=== PATIENT | female | born 1950 | race Caucasian/White ===

== ENCOUNTER 2017-08-26 17:27 | Inpatient (IN) | payer MEDICARE, OTHER ==
[~2017-08-26] VITALS: Ht 157.5 cm; Wt 89.5 kg
[~2017-08-26 17:27] MED LIST: ACET-2247 PO; AMIO200T2 PO; APIX5TAB PO; AUD NEB; BISA10S PR; CELE100 PO; DILT300T PO; DSS100 PO; FAMO20 PO; FE PR; FLUT16H NASAL; FLUT1BLS PO; LORA0.5T2 PO; MOM30 PO; OXYC-42 PO; PANT40TA25 PO; ROPI0.255 PO; SERT100T12 PO; TIOT185 IH; ZOLP5 PO
[2017-08-26] MEDS ORDERED: MULT-1272 PO (17:53)
[2017-08-26] MEDS ORDERED: ASCO500 PO (17:53)
[2017-08-26] MEDS ORDERED: LEVO25TA9 PO (17:53)
[2017-08-26 20:24] LABS: BASOPHILS % (AUTO) 0.7 % (0.0-2.0); EOSINOPHILS % (AUTO) 4.3 % (1.0-6.0); HEMATOCRIT 33.3 % (36-46); HEMOGLOBIN 10.9 g/dL (12.0-16.0); LYMPHOCYTES # (AUTO) 2.4 K/uL (1.0-4.8); LYMPHOCYTES % (AUTO) 28.4 % (22.0-44.0); MEAN CORPUSCULAR HEMOGLOBIN 29.5 pg (26.0-34.0); MEAN CORPUSCULAR HGB CONC 32.8 G/dL (31.0-37.0); MEAN CORPUSCULAR VOLUME 90 fL (80-100); MONOCYTES # (AUTO) 0.8 K/uL (0.1-1.0); MONOCYTES % (AUTO) 9.3 % (2.0-9.0); NEUTROPHILS # (AUTO) 4.9 K/uL (1.8-7.7); NEUTROPHILS % (AUTO) 57.3 % (40.0-70.0); PLATELET COUNT (AUTO) 272 K/uL (150-450); RED CELL DISTRIBUTION WIDTH 16.5 % (11.5-14.5)
[2017-08-26 20:30] LABS: ANION GAP 5 mmol/L (8-16); CALCIUM, TOTAL 8.8 mg/dL (8.8-10.5); CARBON DIOXIDE 32 mmol/L (22-29); CHLORIDE 101 mmol/L (98-107); CREATININE 0.68 mg/dL (0.60-1.30); GLOMERULAR FILTR. RATE CALC > 60 mL/min (>60); GLUCOSE,RANDOM 98 mg/dL (70-110); POTASSIUM 4.5 mmol/L (3.5-5.1); SODIUM SERUM 138 mmol/L (136-145); UREA NITROGEN, BLOOD 17 mg/dL (7-18)
[2017-08-26 20:36] LABS: ALANINE AMINOTRANSFERASE 16 U/L (12-78); ALBUMIN 2.9 g/dL (3.4-5.0); ALKALINE PHOSPHATASE 111 U/L (46-116); ASPARTATE AMINOTRANSFERASE 15 U/L (15-37); BILIRUBIN,TOTAL 0.2 mg/dL (0.1-1.0); CREATINE KINASE, TOTAL 21 U/L (26-192); TOTAL PROTEIN, SERUM 7.5 g/dL (6.4-8.2)
[2017-08-26] MEDS ORDERED: ALBUTEROL SULFATE 2.5 MG/0.5 ML NEB SOLUTION NEB ONE (20:45)
[2017-08-26] MEDS ORDERED: IPRATROPIUM BROMIDE 0.5 MG/2.5 ML NEB SOLUTION NEB ONE (20:45)
[2017-08-26] MEDS ORDERED: MethylPREDNISolone SOD SUCC 125 MG/2 ML VIAL IVP ONE (20:45)
[2017-08-26 21:35] LABS: B-TYPE NATRIURETIC PEPTIDE 57 pg/mL (0-100)
[2017-08-26] MEDS ORDERED: FUROSEMIDE 40 MG/4 ML VIAL IVP ONE (21:45)
[2017-08-26] MEDS ORDERED: LEVOFLOXACIN 500 MG/D5% WATER 100 ML IV ONE (22:00)
[2017-08-26] MEDS ORDERED: ACETAMINOPHEN 325 MG TABLET PO PRN (22:00)
[2017-08-26] MEDS ORDERED: 0.9% SODIUM CHLORIDE 10 ML SYRINGE IVP PRN (22:00)
[2017-08-26] MEDS ORDERED: ONDANSETRON HCL 4 MG/2 ML VIAL IVP PRN (22:00)
[2017-08-26 22:43] LABS: APPEARANCE,URINE CLEAR (CLEAR); BILIRUBIN,URINE NEGATIVE (NEGATIVE); GLUCOSE, URINE (UA) NEGATIVE (NEGATIVE); KETONES,URINE NEGATIVE (NEGATIVE); LEUKOCYTE ESTERASE ,URINE NEGATIVE (NEGATIVE); NITRATE,URINE NEGATIVE (NEGATIVE); OCCULT BLOOD,URINE NEGATIVE (NEGATIVE); PH,URINE 7.5 (5.0-8.0); PROTEIN,URINE NEGATIVE (NEGATIVE)
[2017-08-26 22:58] VITALS: BP 96/51
[2017-08-26 22:59] LABS: INFLUENZA TYPE A NEGATIVE FOR TYPE A (NEGATIVE); INFLUENZA TYPE B NEGATIVE FOR TYPE B (NEGATIVE)
[2017-08-26 23:48] VITALS: BP 94/49
[2017-08-27] MEDS: ALBUTEROL SULFATE 2.5 MG/0.5 ML NEB SOLUTION NEB SCH ×6 (02:00→23:00)
[2017-08-27] MEDS: IPRATROPIUM BROMIDE 0.5 MG/2.5 ML NEB SOLUTION NEB SCH ×6 (02:00→23:00)
[2017-08-27 03:52] VITALS: BP 127/63
[2017-08-27 05:49] LABS: BASOPHILS % (AUTO) 0.2 % (0.0-2.0); EOSINOPHILS % (AUTO) 0 % (1.0-6.0); HEMATOCRIT 34.6 % (36-46); HEMOGLOBIN 11.4 g/dL (12.0-16.0); LYMPHOCYTES % (AUTO) 12.4 % (22.0-44.0); MEAN CORPUSCULAR HEMOGLOBIN 29.4 pg (26.0-34.0); MEAN CORPUSCULAR HGB CONC 32.9 G/dL (31.0-37.0); MEAN CORPUSCULAR VOLUME 90 fL (80-100); MONOCYTES # (AUTO) 0.1 K/uL (0.1-1.0); MONOCYTES % (AUTO) 0.8 % (2.0-9.0); NEUTROPHILS # (AUTO) 7.1 K/uL (1.8-7.7); PLATELET COUNT (AUTO) 282 K/uL (150-450); RED BLOOD CELL COUNT(AUTO) 3.87 MIL/uL (4.00-5.20); RED CELL DISTRIBUTION WIDTH 16.5 % (11.5-14.5)
[2017-08-27 05:53] LABS: NEUTROPHILS % (AUTO) 86.6 % (40.0-70.0)
[2017-08-27 06:35] LABS: ALANINE AMINOTRANSFERASE 15 U/L (12-78); ALKALINE PHOSPHATASE 120 U/L (46-116); ANION GAP 7 mmol/L (8-16); ASPARTATE AMINOTRANSFERASE 15 U/L (15-37); BILIRUBIN,TOTAL 0.2 mg/dL (0.1-1.0); CARBON DIOXIDE 30 mmol/L (22-29); CHLORIDE 103 mmol/L (98-107); CREATININE 0.74 mg/dL (0.60-1.30); GLOMERULAR FILTR. RATE CALC > 60 mL/min (>60); GLUCOSE,RANDOM 145 mg/dL (70-110); POTASSIUM 4.3 mmol/L (3.5-5.1); SODIUM SERUM 140 mmol/L (136-145); TOTAL PROTEIN, SERUM 7.9 g/dL (6.4-8.2); UREA NITROGEN, BLOOD 15 mg/dL (7-18)
[2017-08-27 07:19] VITALS: BP 125/51
[2017-08-27] MEDS ORDERED: ACETAMINOPHEN 325 MG TABLET PO PRN (08:15)
[2017-08-27] MEDS ORDERED: ALBUTEROL SULFATE 2.5 MG/0.5 ML NEB SOLUTION NEB PRN (08:15)
[2017-08-27] MEDS ORDERED: ZOLPIDEM TARTRATE 5 MG TABLET PO PRN ×2 (08:15)
[2017-08-27] MEDS ORDERED: IPRATROPIUM BROMIDE 0.5 MG/2.5 ML NEB SOLUTION NEB PRN (08:15)
[2017-08-27] MEDS ORDERED: 0.9% SODIUM CHLORIDE 10 ML SYRINGE IVP PRN (08:15)
[2017-08-27 08:44] LABS: HEMOGLOBIN A1C 5.5 % (4.5-6.2)
[2017-08-27] MEDS ORDERED: TIOTROPIUM BROMIDE 18 MCG/INH HANDIHALER [5] IH SCH (09:00)
[2017-08-27 09:02] LABS: THYROID STIMULATING HORMONE 1.74 uIU/mL (0.36-3.74)
[2017-08-27] MEDS: AMIODARONE HCL 200 MG TABLET PO SCH (09:14)
[2017-08-27] MEDS: PANTOPRAZOLE SODIUM 40 MG DR TABLET PO SCH (09:14)
[2017-08-27] MEDS: CefTRIAXone SODIUM 1 GM in DEXTROSE 5%-WATER 10 ML IV SCH (09:14)
[2017-08-27] MEDS: MethylPREDNISolone SOD SUCC 125 MG/2 ML VIAL IVP SCH ×2 (09:14→15:15)
[2017-08-27] MEDS: DOCUSATE SODIUM 100 MG CAPSULE PO SCH ×3 (09:14→20:19)
[2017-08-27] MEDS ORDERED: SODIUM CHLORIDE 0.9% 100 ML ONE (09:39)
[2017-08-27] MEDS: AZITHROMYCIN 500 MG/NS 250 ML IV SCH (09:46)
[2017-08-27] MEDS: FLUTICASONE/VILANTEROL 200-25 MCG/INH INHALER [14] IH SCH (09:46)
[2017-08-27] MEDS: LEVOTHYROXINE SODIUM 25 MCG TABLET PO SCH (09:47)
[2017-08-27] MEDS: CELECOXIB 100 MG CAPSULE PO SCH (09:47)
[2017-08-27] MEDS: APIXABAN 5 MG TABLET PO SCH ×2 (09:48→20:16)
[2017-08-27] MEDS: SERTRALINE HCL 100 MG TABLET PO SCH (09:48)
[2017-08-27] MEDS: ASCORBIC ACID 500 MG TABLET PO SCH (09:48)
[2017-08-27 11:04] VITALS: BP 95/55
[2017-08-27 14:33] VITALS: BP 109/59
[2017-08-27] MEDS: HYDROCODONE/ACETAMINOPHEN 5-325 MG TABLET PO PRN ×2 (14:35→20:17)
[2017-08-27 15:25] VITALS: BP 118/58
[2017-08-27 19:21] VITALS: BP 106/59
[2017-08-27] MEDS: OXYGEN THERAPY IH SCH (20:15)
[2017-08-27] MEDS: ROPINIRole HCL 0.25 MG TABLET PO SCH (20:16)
[2017-08-27] MEDS: LORazepam 0.5 MG TABLET PO PRN (20:17)
[2017-08-28] VITALS (7 sets, daily range): BP systolic 99–122; BP diastolic 52–61
[2017-08-28] MEDS: MethylPREDNISolone SOD SUCC 125 MG/2 ML VIAL IVP SCH ×4 (00:34→23:38)
[2017-08-28] MEDS: ALBUTEROL SULFATE 2.5 MG/0.5 ML NEB SOLUTION NEB SCH ×6 (03:00→23:00)
[2017-08-28] MEDS: IPRATROPIUM BROMIDE 0.5 MG/2.5 ML NEB SOLUTION NEB SCH ×6 (03:00→23:00)
[2017-08-28 05:48] LABS: BASOPHILS % (AUTO) 0.1 % (0.0-2.0); EOSINOPHILS % (AUTO) 0 % (1.0-6.0); HEMATOCRIT 33.9 % (36-46); LYMPHOCYTES # (AUTO) 1.1 K/uL (1.0-4.8); LYMPHOCYTES % (AUTO) 5.5 % (22.0-44.0); MEAN CORPUSCULAR HEMOGLOBIN 29.2 pg (26.0-34.0); MEAN CORPUSCULAR HGB CONC 32.6 G/dL (31.0-37.0); MEAN CORPUSCULAR VOLUME 90 fL (80-100); MONOCYTES # (AUTO) 0.2 K/uL (0.1-1.0); MONOCYTES % (AUTO) 1.1 % (2.0-9.0); NEUTROPHILS # (AUTO) 18.6 K/uL (1.8-7.7); PLATELET COUNT (AUTO) 325 K/uL (150-450); RED BLOOD CELL COUNT(AUTO) 3.78 MIL/uL (4.00-5.20)
[2017-08-28 05:59] LABS: NEUTROPHILS % (AUTO) 93.3 % (40.0-70.0)
[2017-08-28 06:04] LABS: ANION GAP 6 mmol/L (8-16); CARBON DIOXIDE 29 mmol/L (22-29); CHLORIDE 105 mmol/L (98-107); CREATININE 0.74 mg/dL (0.60-1.30); GLOMERULAR FILTR. RATE CALC > 60 mL/min (>60); GLUCOSE,RANDOM 161 mg/dL (70-110); POTASSIUM 4.3 mmol/L (3.5-5.1); SODIUM SERUM 140 mmol/L (136-145); UREA NITROGEN, BLOOD 19 mg/dL (7-18)
[2017-08-28] MEDS: LEVOTHYROXINE SODIUM 25 MCG TABLET PO SCH (06:35)
[2017-08-28] MEDS: OXYGEN THERAPY IH SCH ×2 (07:58→19:14)
[2017-08-28] MEDS: AZITHROMYCIN 500 MG/NS 250 ML IV SCH (07:58)
[2017-08-28] MEDS: PANTOPRAZOLE SODIUM 40 MG DR TABLET PO SCH (07:59)
[2017-08-28] MEDS: DOCUSATE SODIUM 100 MG CAPSULE PO SCH ×2 (07:59→21:00)
[2017-08-28] MEDS: AMIODARONE HCL 200 MG TABLET PO SCH (07:59)
[2017-08-28] MEDS: APIXABAN 5 MG TABLET PO SCH ×2 (08:00→21:01)
[2017-08-28] MEDS: ASCORBIC ACID 500 MG TABLET PO SCH (08:00)
[2017-08-28] MEDS: SERTRALINE HCL 100 MG TABLET PO SCH (08:00)
[2017-08-28] MEDS: CELECOXIB 100 MG CAPSULE PO SCH (08:01)
[2017-08-28] MEDS: TIOTROPIUM BROMIDE 18 MCG/INH HANDIHALER [5] IH SCH (08:05)
[2017-08-28] MEDS: FLUTICASONE/VILANTEROL 200-25 MCG/INH INHALER [14] IH SCH (08:06)
[2017-08-28] MEDS: CefTRIAXone SODIUM 1 GM in DEXTROSE 5%-WATER 10 ML IV SCH (10:58)
[2017-08-28] MEDS: HYDROCODONE/ACETAMINOPHEN 5-325 MG TABLET PO PRN (14:31)
[2017-08-28] MEDS: ROPINIRole HCL 0.25 MG TABLET PO SCH (21:00)
[2017-08-29] MEDS: IPRATROPIUM BROMIDE 0.5 MG/2.5 ML NEB SOLUTION NEB SCH ×4 (03:00→14:58)
[2017-08-29] MEDS: ALBUTEROL SULFATE 2.5 MG/0.5 ML NEB SOLUTION NEB SCH ×4 (03:00→14:58)
[2017-08-29 05:13] VITALS: BP 132/71
[2017-08-29] MEDS: LEVOTHYROXINE SODIUM 25 MCG TABLET PO SCH (05:46)
[2017-08-29 07:31] VITALS: BP 116/68
[2017-08-29] MEDS: DOCUSATE SODIUM 100 MG CAPSULE PO SCH (09:00)
[2017-08-29] MEDS: AZITHROMYCIN 500 MG/NS 250 ML IV SCH (10:09)
[2017-08-29] MEDS: MethylPREDNISolone SOD SUCC 125 MG/2 ML VIAL IVP SCH ×2 (10:09→16:00)
[2017-08-29] MEDS: CefTRIAXone SODIUM 1 GM in DEXTROSE 5%-WATER 10 ML IV SCH (10:09)
[2017-08-29] MEDS: FLUTICASONE/VILANTEROL 200-25 MCG/INH INHALER [14] IH SCH (10:10)
[2017-08-29] MEDS: TIOTROPIUM BROMIDE 18 MCG/INH HANDIHALER [5] IH SCH (10:10)
[2017-08-29] MEDS: CELECOXIB 100 MG CAPSULE PO SCH (10:11)
[2017-08-29] MEDS: SERTRALINE HCL 100 MG TABLET PO SCH (10:12)
[2017-08-29] MEDS: AMIODARONE HCL 200 MG TABLET PO SCH (10:12)
[2017-08-29] MEDS: ASCORBIC ACID 500 MG TABLET PO SCH (10:12)
[2017-08-29] MEDS: PANTOPRAZOLE SODIUM 40 MG DR TABLET PO SCH (10:12)
[2017-08-29] MEDS: APIXABAN 5 MG TABLET PO SCH (10:12)
[2017-08-29] MEDS: OXYGEN THERAPY IH SCH (10:15)
[2017-08-29 11:24] VITALS: BP 105/56
[2017-08-29] MEDS ORDERED: AZITHROMYCIN 250 MG TABLET PO ONE (11:30)
[2017-08-29] MEDS ORDERED: AZIT250T9 PO (11:43)
[2017-08-29] MEDS: LORazepam 0.5 MG TABLET PO PRN (15:18)
[2017-08-29 15:57] VITALS: BP 116/77
== END 2017-08-29 18:00 | DRG 291 ==
LOC: EMS 17:33 → 5S 22:00
PROVIDERS: ADMIT Internal Medicine; ATTEND Internal Medicine
DX: I11.0 Hypertensive heart disease with heart failure (principal); J96.00 Acute respiratory failure, unspecified whether with hypoxia or hypercapnia; L89.102 Pressure ulcer of unspecified part of back, stage 2; J44.1 Chronic obstructive pulmonary disease with (acute) exacerbation; I50.43 Acute on chronic combined systolic (congestive) and diastolic (congestive) heart failure; I48.91 Unspecified atrial fibrillation; I10 Essential (primary) hypertension; F32.9 Major depressive disorder, single episode, unspecified; K21.9 Gastro-esophageal reflux disease without esophagitis; E03.9 Hypothyroidism, unspecified; E11.9 Type 2 diabetes mellitus without complications; Z82.49 Family history of ischemic heart disease and other diseases of the circulatory system; Z82.5 Family history of asthma and other chronic lower respiratory diseases; Z83.3 Family history of diabetes mellitus; Z87.891 Personal history of nicotine dependence; G89.29 Other chronic pain; Z79.899 Other long term (current) drug therapy; E66.01 Morbid (severe) obesity due to excess calories; Z68.36 Body mass index [BMI] 36.0-36.9, adult; Z88.1 Allergy status to other antibiotic agents
CPT/HCPCS: 83036; 83735; 84443; 87081; 87804; 93005; 94640; 96365; 96375; 97161; 97166; 99285; J0456; J0696; J1940; J1956; J2930; J7050; J7060

== ENCOUNTER 2019-07-29 14:35 | Inpatient (IN) | payer MEDICARE, OTHER ==
[~2019-07-29] VITALS: Ht 162.6 cm; Wt 60.1 kg
[~2019-07-29 14:35] MED LIST changes: -AMIO200T2 PO; +AMIO200T5 PO; +ASCO500 PO; +AZIT250T9 PO; -BISA10S PR; +BISA10SU11 PR; -FAMO20 PO; -FLUT16H NASAL; +LEVO25TA9 PO; +LORA-999 PO; -LORA0.5T2 PO; +MULT-1272 PO; -ROPI0.255 PO; +ROPI0.257 PO
[2019-07-29] MEDS ORDERED: ACETAMINOPHEN 500 MG TABLET PO ONE (15:15)
[2019-07-29] MEDS ORDERED: MULT-248 PO (15:20)
[2019-07-29] MEDS ORDERED: DOCU-275 PO (15:20)
[2019-07-29 15:55] LABS: ANION GAP 4 mmol/L (8-16); CALCIUM, TOTAL 8.9 mg/dL (8.8-10.5); CARBON DIOXIDE 37 mmol/L (22-29); CHLORIDE 106 mmol/L (98-107); CREATININE 0.61 mg/dL (0.60-1.30); GLOMERULAR FILTR. RATE CALC > 60 mL/min (>60); GLUCOSE,RANDOM 102 mg/dL (70-110); POTASSIUM 4.2 mmol/L (3.5-5.1); SODIUM SERUM 147 mmol/L (136-145); UREA NITROGEN, BLOOD 19 mg/dL (7-18)
[2019-07-29 15:58] LABS: INR 1.1 (0.9-1.1); PROTHROMBIN TIME 10.7 SEC (9.4-11.6)
[2019-07-29 15:59] LABS: BASOPHILS % (AUTO) 0.3 % (0.0-2.0); EOSINOPHILS % (AUTO) 2.6 % (1.0-6.0); HEMATOCRIT 36.1 % (36-46); HEMOGLOBIN 11.6 g/dL (12.0-16.0); LYMPHOCYTES # (AUTO) 1.9 K/uL (1.0-4.8); LYMPHOCYTES % (AUTO) 30.5 % (22.0-44.0); MEAN CORPUSCULAR HEMOGLOBIN 30.7 pg (26.0-34.0); MEAN CORPUSCULAR HGB CONC 32.2 G/dL (31.0-37.0); MEAN CORPUSCULAR VOLUME 96 fL (80-100); MONOCYTES # (AUTO) 0.7 K/uL (0.1-1.0); NEUTROPHILS # (AUTO) 3.4 K/uL (1.8-7.7); NEUTROPHILS % (AUTO) 55.6 % (40.0-70.0); PLATELET COUNT (AUTO) 237 K/uL (150-450); RED BLOOD CELL COUNT(AUTO) 3.78 MIL/uL (4.00-5.20); RED CELL DISTRIBUTION WIDTH 14.2 % (11.5-14.5)
[2019-07-29 16:08] LABS: ALANINE AMINOTRANSFERASE 35 U/L (12-78); ALBUMIN 2.8 g/dL (3.4-5.0); ALKALINE PHOSPHATASE 86 U/L (46-116); ASPARTATE AMINOTRANSFERASE 31 U/L (15-37); BILIRUBIN,TOTAL 0.4 mg/dL (0.1-1.0); LIPASE 72 U/L (73-393); TOTAL PROTEIN, SERUM 7.3 g/dL (6.4-8.2)
[2019-07-29] MEDS ORDERED: SODIUM CHLORIDE 0.9% 1,000 ML IV ONE (18:15)
[2019-07-29] MEDS ORDERED: PIPERACILLIN/TAZO 3.375 GM/D5W 50 ML IV ONE (18:45)
[2019-07-29] MEDS ORDERED: AZITHROMYCIN 500 MG/NS 250 ML IV ONE (18:45)
[2019-07-29] MEDS ORDERED: VANCOMYCIN HCL 1 GM/D5% WATER 200 ML IV ONE (18:45)
[2019-07-29] MEDS ORDERED: ACETAMINOPHEN 325 MG TABLET PO PRN ×2 (19:30)
[2019-07-29] MEDS ORDERED: BISACODYL 10 MG RECTAL RECTAL SUPPOSITORY PR PRN (19:30)
[2019-07-29] MEDS ORDERED: MAGNESIUM HYDROXIDE SUSPENSION 30 ML UDCUP PO PRN (19:30)
[2019-07-29] MEDS ORDERED: SODIUM CHLORIDE 0.45% 1,000 ML IV ONE (19:30)
[2019-07-29] MEDS ORDERED: 0.9% SODIUM CHLORIDE 10 ML SYRINGE IVP PRN (19:30)
[2019-07-29] MEDS ORDERED: IPRATROPIUM BROMIDE 0.5 MG/2.5 ML NEB SOLUTION NEB ONE (20:15)
[2019-07-29] MEDS ORDERED: ALBUTEROL SULFATE 2.5 MG/0.5 ML NEB SOLUTION NEB ONE (20:15)
[2019-07-29] MEDS ORDERED: SODIUM CHLORIDE 0.9% 500 ML IV ONE (20:15)
[2019-07-29] MEDS: DOCUSATE SODIUM 100 MG CAPSULE PO SCH (21:20)
[2019-07-29 22:00] VITALS: BP 114/45
[2019-07-30] MEDS ORDERED: VANCOMYCIN HCL 500 MG in DEXTROSE 5%-WATER 100 ML IV ONE ×2
[2019-07-30] MEDS: HEPARIN SODIUM,PORCINE 5,000 UNITS/ML VIAL SQ SCH ×4 (00:36→23:26)
[2019-07-30] MEDS: PIPERACILLIN/TAZO 3.375 GM/D5W 50 ML IV SCH ×5 (01:57→23:26)
[2019-07-30 04:00] VITALS: BP 121/78
[2019-07-30] MEDS: VANCOMYCIN HCL 1.5 GM in DEXTROSE 5%-WATER 250 ML IV SCH ×2 (06:38→18:23)
[2019-07-30 07:15] LABS: BASOPHILS % (AUTO) 0.3 % (0.0-2.0); EOSINOPHILS % (AUTO) 2.5 % (1.0-6.0); HEMOGLOBIN 10.8 g/dL (12.0-16.0); LYMPHOCYTES # (AUTO) 1.5 K/uL (1.0-4.8); LYMPHOCYTES % (AUTO) 24.5 % (22.0-44.0); MEAN CORPUSCULAR HEMOGLOBIN 31.4 pg (26.0-34.0); MEAN CORPUSCULAR HGB CONC 32.7 G/dL (31.0-37.0); MEAN CORPUSCULAR VOLUME 96 fL (80-100); MONOCYTES # (AUTO) 0.5 K/uL (0.1-1.0); MONOCYTES % (AUTO) 8.4 % (2.0-9.0); NEUTROPHILS % (AUTO) 64.3 % (40.0-70.0); PLATELET COUNT (AUTO) 205 K/uL (150-450); RED BLOOD CELL COUNT(AUTO) 3.44 MIL/uL (4.00-5.20); RED CELL DISTRIBUTION WIDTH 13.9 % (11.5-14.5)
[2019-07-30 08:00] LABS: ALANINE AMINOTRANSFERASE 28 U/L (12-78); ALBUMIN 2.4 g/dL (3.4-5.0); ALKALINE PHOSPHATASE 74 U/L (46-116); ANION GAP 3 mmol/L (8-16); ASPARTATE AMINOTRANSFERASE 24 U/L (15-37); BILIRUBIN,TOTAL 0.3 mg/dL (0.1-1.0); CALCIUM, TOTAL 8.3 mg/dL (8.8-10.5); CARBON DIOXIDE 35 mmol/L (22-29); CHLORIDE 104 mmol/L (98-107); CREATININE 0.65 mg/dL (0.60-1.30); GLOMERULAR FILTR. RATE CALC > 60 mL/min (>60); GLUCOSE,RANDOM 104 mg/dL (70-110); POTASSIUM 3.6 mmol/L (3.5-5.1); SODIUM SERUM 142 mmol/L (136-145); TOTAL PROTEIN, SERUM 6.4 g/dL (6.4-8.2); UREA NITROGEN, BLOOD 14 mg/dL (7-18)
[2019-07-30 08:02] VITALS: BP 111/58
[2019-07-30] MEDS: DOCUSATE SODIUM 100 MG CAPSULE PO SCH ×2 (08:16→20:38)
[2019-07-30] MEDS: FAMOTIDINE 20 MG TABLET PO SCH (08:16)
[2019-07-30] MEDS: CHOLECALCIFEROL (VIT D3) 1,000 UNITS TABLET PO SCH ×2 (10:29→20:39)
[2019-07-30 11:48] VITALS: BP 97/65
[2019-07-30 16:14] VITALS: BP 109/59
[2019-07-30 16:55] LABS: APPEARANCE,URINE CLOUDY (CLEAR); BILIRUBIN,URINE NEGATIVE (NEGATIVE); GLUCOSE, URINE (UA) NEGATIVE (NEGATIVE); KETONES,URINE NEGATIVE (NEGATIVE); LEUKOCYTE ESTERASE ,URINE LARGE (NEGATIVE); NITRATE,URINE NEGATIVE (NEGATIVE); OCCULT BLOOD,URINE SMALL (NEGATIVE); PROTEIN,URINE NEGATIVE (NEGATIVE)
[2019-07-30 17:19] LABS: BACTERIA,URINE Many /HPF (None Seen); SQUAMOUS EPITHELIAL CELL,UR Few /LPF (None Seen); WBC,URINE 51-100 /HPF (0-5)
[2019-07-30 20:57] VITALS: BP 102/68
[2019-07-31 00:37] VITALS: BP 112/56
[2019-07-31 04:32] VITALS: BP 129/54
[2019-07-31] MEDS ORDERED: ALBUTEROL SULFATE 2.5 MG/0.5 ML NEB SOLUTION NEB ONE (04:38)
[2019-07-31] MEDS ORDERED: IPRATROPIUM BROMIDE 0.5 MG/2.5 ML NEB SOLUTION NEB ONE (04:38)
[2019-07-31] MEDS ORDERED: ALBUTEROL SULFATE 2.5 MG/0.5 ML NEB SOLUTION NEB PRN (04:45)
[2019-07-31] MEDS ORDERED: IPRATROPIUM BROMIDE 0.5 MG/2.5 ML NEB SOLUTION NEB PRN (04:45)
[2019-07-31] MEDS: PIPERACILLIN/TAZO 3.375 GM/D5W 50 ML IV SCH ×4 (05:18→23:15)
[2019-07-31] MEDS: VANCOMYCIN HCL 1.5 GM in DEXTROSE 5%-WATER 250 ML IV SCH ×2 (05:55→18:05)
[2019-07-31 07:26] VITALS: BP 112/71
[2019-07-31] MEDS: MULTIVITAMINS WITH MINERALS, THERAPEUTIC TABLET PO SCH (08:07)
[2019-07-31] MEDS: FAMOTIDINE 20 MG TABLET PO SCH (08:07)
[2019-07-31] MEDS: CHOLECALCIFEROL (VIT D3) 1,000 UNITS TABLET PO SCH ×2 (08:07→23:15)
[2019-07-31] MEDS: DOCUSATE SODIUM 100 MG CAPSULE PO SCH ×2 (08:07→23:16)
[2019-07-31] MEDS: HEPARIN SODIUM,PORCINE 5,000 UNITS/ML VIAL SQ SCH ×3 (08:07→23:15)
[2019-07-31] MEDS ORDERED: OxyCODONE HCL/ACETAMINOPHEN 5-325 MG TABLET PO PRN (11:15)
[2019-07-31] MEDS ORDERED: LORazepam 2 MG/ML VIAL IVP PRN (11:15)
[2019-07-31 11:23] VITALS: BP 121/57
[2019-07-31 11:37] LABS: ANION GAP 2 mmol/L (8-16); CALCIUM, TOTAL 8.7 mg/dL (8.8-10.5); CARBON DIOXIDE 36 mmol/L (22-29); CHLORIDE 105 mmol/L (98-107); CREATININE 0.65 mg/dL (0.60-1.30); GLOMERULAR FILTR. RATE CALC > 60 mL/min (>60); GLUCOSE,RANDOM 101 mg/dL (70-110); POTASSIUM 3.5 mmol/L (3.5-5.1); SODIUM SERUM 143 mmol/L (136-145); UREA NITROGEN, BLOOD 8 mg/dL (7-18)
[2019-07-31] MEDS: SERTRALINE HCL 100 MG TABLET PO SCH (15:02)
[2019-07-31 15:20] VITALS: BP 122/64
[2019-07-31 20:30] VITALS: BP 109/69
[2019-08-01 00:10] VITALS: BP 100/58
[2019-08-01 04:40] VITALS: BP 103/55
[2019-08-01] MEDS: PIPERACILLIN/TAZO 3.375 GM/D5W 50 ML IV SCH (05:52)
[2019-08-01 07:10] VITALS: BP 113/68
[2019-08-01] MEDS: VANCOMYCIN HCL 1.5 GM in DEXTROSE 5%-WATER 250 ML IV SCH (07:34)
[2019-08-01] MEDS: SERTRALINE HCL 100 MG TABLET PO SCH (07:51)
[2019-08-01] MEDS: MULTIVITAMINS WITH MINERALS, THERAPEUTIC TABLET PO SCH (07:51)
[2019-08-01] MEDS: HEPARIN SODIUM,PORCINE 5,000 UNITS/ML VIAL SQ SCH ×2 (07:51→16:54)
[2019-08-01] MEDS: FAMOTIDINE 20 MG TABLET PO SCH (07:51)
[2019-08-01] MEDS: DOCUSATE SODIUM 100 MG CAPSULE PO SCH (07:51)
[2019-08-01] MEDS: CHOLECALCIFEROL (VIT D3) 1,000 UNITS TABLET PO SCH (07:51)
[2019-08-01 09:18] LABS: ANION GAP 2 mmol/L (8-16); CALCIUM, TOTAL 8.6 mg/dL (8.8-10.5); CARBON DIOXIDE 34 mmol/L (22-29); CHLORIDE 105 mmol/L (98-107); CREATININE 0.73 mg/dL (0.60-1.30); GLOMERULAR FILTR. RATE CALC > 60 mL/min (>60); GLUCOSE,RANDOM 110 mg/dL (70-110); POTASSIUM 3.6 mmol/L (3.5-5.1); SODIUM SERUM 141 mmol/L (136-145); UREA NITROGEN, BLOOD 7 mg/dL (7-18)
[2019-08-01 09:45] LABS: VANCOMYCIN,RANDOM 54.1 mcg/mL (25.0-50.0)
[2019-08-01] MEDS ORDERED: NITROFURANTOIN MACROCRYSTAL 50 MG CAPSULE PO SCH (12:00)
[2019-08-01 12:48] VITALS: BP 128/50
[2019-08-01 15:52] VITALS: BP 108/57
== END 2019-08-01 19:00 | DRG 194 ==
LOC: EMS 14:59 → 4E 19:00
PROVIDERS: ADMIT Internal Medicine; ATTEND Internal Medicine
DX: J18.9 Pneumonia, unspecified organism (principal); M84.48XA Pathological fracture, other site, initial encounter for fracture; N39.0 Urinary tract infection, site not specified; Z16.24 Resistance to multiple antibiotics; E44.0 Moderate protein-calorie malnutrition; J44.0 Chronic obstructive pulmonary disease with (acute) lower respiratory infection; J98.11 Atelectasis; E55.9 Vitamin D deficiency, unspecified; F41.1 Generalized anxiety disorder; F32.9 Major depressive disorder, single episode, unspecified; G89.4 Chronic pain syndrome; I50.9 Heart failure, unspecified; Y95 Nosocomial condition; K57.90 Diverticulosis of intestine, part unspecified, without perforation or abscess without bleeding; Z88.1 Allergy status to other antibiotic agents; Z87.891 Personal history of nicotine dependence; E11.9 Type 2 diabetes mellitus without complications; Z83.3 Family history of diabetes mellitus; Z82.49 Family history of ischemic heart disease and other diseases of the circulatory system; Z82.5 Family history of asthma and other chronic lower respiratory diseases; Z68.22 Body mass index [BMI] 22.0-22.9, adult
CPT/HCPCS: 74177; 83036; 87081; 87086; 94060; 94640; G0378; J0456; J1644; J2060; J2543; J3370; J7030; J7060

== ENCOUNTER 2022-04-07 14:04 | Inpatient (IN) | payer MEDICARE, OTHER ==
[~2022-04-07] VITALS: Ht 157.5 cm; Wt 81.3 kg
[~2022-04-07 14:04] MED LIST changes: +AMIO200 PO; -AMIO200T5 PO; -AZIT250T9 PO; +DOCU-385 PO; -DSS100 PO; -FE PR; +FLUT1BLS IH; -FLUT1BLS PO; +MAGN-169 PO; -MOM30 PO; -MULT-1272 PO; +MULT-248 PO; +NA P266E PR; +PANT-31 PO; -PANT40TA25 PO; +SERT-162 PO; -SERT100T12 PO; +ZOLP-280 PO; -ZOLP5 PO
[2022-04-07 17:11] LABS: BASOPHILS % (AUTO) 0.3 % (0.0-2.0); EOSINOPHILS % (AUTO) 1.6 % (1.0-6.0); HEMATOCRIT 34.1 % (36-46); LYMPHOCYTES % (AUTO) 10.9 % (22.0-44.0); MEAN CORPUSCULAR HEMOGLOBIN 29.1 pg (26.0-34.0); MEAN CORPUSCULAR HGB CONC 32.3 G/dL (31.0-37.0); MEAN CORPUSCULAR VOLUME 90 fL (80-100); MONOCYTES # (AUTO) 0.8 K/uL (0.1-1.0); MONOCYTES % (AUTO) 9.3 % (2.0-9.0); NEUTROPHILS % (AUTO) 77.9 % (40.0-70.0); PLATELET COUNT (AUTO) 239 K/uL (150-450); RED BLOOD CELL COUNT(AUTO) 3.78 MIL/uL (4.00-5.20); RED CELL DISTRIBUTION WIDTH 15.2 % (11.5-14.5)
[2022-04-07 17:23] LABS: ANION GAP 9 mmol/L (8-16); CALCIUM, TOTAL 8.9 mg/dL (8.8-10.5); CARBON DIOXIDE 31 mmol/L (22-29); CHLORIDE 101 mmol/L (98-107); CREATININE 0.71 mg/dL (0.60-1.30); GLUCOSE,RANDOM 111 mg/dL (70-110); POTASSIUM 3.9 mmol/L (3.5-5.1); SODIUM SERUM 141 mmol/L (136-145); UREA NITROGEN, BLOOD 19 mg/dL (7-18)
[2022-04-07 17:26] LABS: GLOMERULAR FILTR. RATE CALC > 60 mL/min (>60)
[2022-04-07 17:29] LABS: ALANINE AMINOTRANSFERASE 15 U/L (12-78); ALBUMIN 2.6 g/dL (3.4-5.0); ALKALINE PHOSPHATASE 100 U/L (46-116); ASPARTATE AMINOTRANSFERASE 19 U/L (15-37); BILIRUBIN,TOTAL 0.5 mg/dL (0.1-1.0); LIPASE 49 U/L (73-393); TOTAL PROTEIN, SERUM 6.9 g/dL (6.4-8.2)
[2022-04-07 17:36] LABS: B-TYPE NATRIURETIC PEPTIDE 332 pg/mL (0-100)
[2022-04-07 18:00] LABS: LACTIC ACID 0.6 mmol/L (0.4-2.0)
[2022-04-07] MEDS ORDERED: RINGERS LACTATED IV ONE (21:15)
[2022-04-07] MEDS ORDERED: AZITHROMYCIN 500 MG/NS 250 ML IV ONE (21:15)
[2022-04-07] MEDS ORDERED: RINGERS SOLUTION,LACTATED 1,000 ML IV SCH ×2 (21:15→21:30)
[2022-04-07] MEDS ORDERED: ONDANSETRON HCL 4 MG/2 ML VIAL IVP PRN ×2 (21:15)
[2022-04-07] MEDS ORDERED: SODIUM PHOS/SODIUM BIPHOS 133 ML ENEMA PR ONE (21:15)
[2022-04-07] MEDS ORDERED: MAGNESIUM HYDROXIDE SUSPENSION 30 ML UDCUP PO PRN (21:30)
[2022-04-07] MEDS ORDERED: ZOLPIDEM TARTRATE 5 MG TABLET PO PRN (21:30)
[2022-04-07] MEDS ORDERED: BISACODYL 10 MG RECTAL RECTAL SUPPOSITORY PR PRN (21:30)
[2022-04-07] MEDS: CefTRIAXone 1 GM/DEXTROSE 50 ML IV SCH (22:24)
[2022-04-07 23:49] LABS: COVID AG,FIA SOURCE NASAL SWAB
[2022-04-08] VITALS: BP 100/76
[2022-04-08] MEDS ORDERED: HEPARIN SODIUM,PORCINE 5,000 UNITS/ML VIAL SQ SCH
[2022-04-08] MEDS ORDERED: SODIUM CHLORIDE 0.9% 250 ML IV ONE (00:38)
[2022-04-08] MEDS: ACETAMINOPHEN 325 MG TABLET PO PRN (01:33)
[2022-04-08] MEDS: LORazepam 0.5 MG TABLET PO PRN ×2 (01:47→15:11)
[2022-04-08] MEDS: IPRATROPIUM BROMIDE 0.5 MG/2.5 ML NEB SOLUTION NEB PRN ×2 (01:53→10:17)
[2022-04-08] MEDS: ALBUTEROL SULFATE 2.5 MG/0.5 ML NEB SOLUTION NEB PRN ×2 (01:54→10:17)
[2022-04-08] MEDS: LEVOTHYROXINE SODIUM 25 MCG TABLET PO SCH (05:29)
[2022-04-08 05:32] VITALS: BP 119/78
[2022-04-08 07:10] VITALS: BP 140/59
[2022-04-08] MEDS ORDERED: DOCUSATE SODIUM 100 MG CAPSULE PO SCH (09:00)
[2022-04-08] MEDS ORDERED: DILTIAZEM HCL CD 300 MG ER CAPSULE PO SCH (09:00)
[2022-04-08] MEDS: AZITHROMYCIN 250 MG TABLET PO SCH (09:04)
[2022-04-08] MEDS: DILTIAZEM HCL CD 120 MG ER CAPSULE PO SCH (09:04)
[2022-04-08] MEDS: PANTOPRAZOLE SODIUM 40 MG DR TABLET PO SCH (09:04)
[2022-04-08] MEDS: APIXABAN 5 MG TABLET PO SCH ×2 (09:04→20:23)
[2022-04-08] MEDS: DILTIAZEM HCL CD 180 MG ER CAPSULE PO SCH (09:05)
[2022-04-08] MEDS: TIOTROPIUM BROMIDE 18 MCG/INH HANDIHALER [5] IH SCH (09:05)
[2022-04-08] MEDS: SERTRALINE HCL 100 MG TABLET PO SCH (09:05)
[2022-04-08] MEDS: AMIODARONE HCL 200 MG TABLET PO SCH (09:05)
[2022-04-08 11:10] LABS: BASOPHILS % (AUTO) 0.2 % (0.0-2.0); EOSINOPHILS % (AUTO) 1.7 % (1.0-6.0); HEMATOCRIT 35.1 % (36-46); HEMOGLOBIN 11.3 g/dL (12.0-16.0); LYMPHOCYTES # (AUTO) 1.1 K/uL (1.0-4.8); LYMPHOCYTES % (AUTO) 11.4 % (22.0-44.0); MEAN CORPUSCULAR HEMOGLOBIN 29.3 pg (26.0-34.0); MEAN CORPUSCULAR HGB CONC 32.1 G/dL (31.0-37.0); MEAN CORPUSCULAR VOLUME 91 fL (80-100); MONOCYTES # (AUTO) 0.8 K/uL (0.1-1.0); MONOCYTES % (AUTO) 8.3 % (2.0-9.0); NEUTROPHILS # (AUTO) 7.6 K/uL (1.8-7.7); NEUTROPHILS % (AUTO) 78.4 % (40.0-70.0); PLATELET COUNT (AUTO) 276 K/uL (150-450); RED BLOOD CELL COUNT(AUTO) 3.85 MIL/uL (4.00-5.20); RED CELL DISTRIBUTION WIDTH 15.4 % (11.5-14.5)
[2022-04-08 11:20] LABS: ANION GAP 7 mmol/L (8-16); CARBON DIOXIDE 31 mmol/L (22-29); CHLORIDE 105 mmol/L (98-107); CREATININE 0.58 mg/dL (0.60-1.30); GLOMERULAR FILTR. RATE CALC > 60 mL/min (>60); GLUCOSE,RANDOM 139 mg/dL (70-110); SODIUM SERUM 143 mmol/L (136-145); UREA NITROGEN, BLOOD 15 mg/dL (7-18)
[2022-04-08 11:24] VITALS: BP 134/62
[2022-04-08 11:38] LABS: ALANINE AMINOTRANSFERASE 13 U/L (12-78); ALBUMIN 2.9 g/dL (3.4-5.0); ALKALINE PHOSPHATASE 105 U/L (46-116); ASPARTATE AMINOTRANSFERASE 17 U/L (15-37); BILIRUBIN,TOTAL 0.4 mg/dL (0.1-1.0); TOTAL PROTEIN, SERUM 7.2 g/dL (6.4-8.2)
[2022-04-08] MEDS ORDERED: GABA-529 PO (13:30)
[2022-04-08] MEDS: ASCORBIC ACID 500 MG TABLET PO SCH (13:39)
[2022-04-08] MEDS ORDERED: IPRATROPIUM BROMIDE 0.5 MG/2.5 ML NEB SOLUTION NEB PRN (14:45)
[2022-04-08] MEDS ORDERED: ALBUTEROL SULFATE 2.5 MG/0.5 ML NEB SOLUTION NEB PRN (14:45)
[2022-04-08] MEDS: ALBUTEROL SULFATE 2.5 MG/0.5 ML NEB SOLUTION NEB SCH ×3 (14:53→23:18)
[2022-04-08] MEDS: IPRATROPIUM BROMIDE 0.5 MG/2.5 ML NEB SOLUTION NEB SCH ×3 (14:53→23:18)
[2022-04-08 14:54] VITALS: BP 110/74
[2022-04-08] MEDS ORDERED: FUROSEMIDE 20 MG/2 ML VIAL IVP ONE (17:15)
[2022-04-08] MEDS: MethylPREDNISolone SOD SUCC 125 MG/2 ML VIAL IVP SCH (17:16)
[2022-04-08] MEDS: BISACODYL 10 MG RECTAL RECTAL SUPPOSITORY PR PRN (17:19)
[2022-04-08 19:48] VITALS: BP 116/70
[2022-04-08] MEDS: DOCUSATE SODIUM 100 MG CAPSULE PO SCH (20:23)
[2022-04-08] MEDS: ROPINIRole HCL 0.25 MG TABLET PO SCH (20:24)
[2022-04-08] MEDS ORDERED: IOHEXOL 350 MG/ML 100 ML VIAL ONE (20:36)
[2022-04-08] MEDS ORDERED: SODIUM CHLORIDE 0.9% 100 ML ONE (20:36)
[2022-04-08] MEDS: CefTRIAXone 1 GM/DEXTROSE 50 ML IV SCH (22:05)
[2022-04-09] MEDS: MethylPREDNISolone SOD SUCC 125 MG/2 ML VIAL IVP SCH ×5 (00:22→23:51)
[2022-04-09] MEDS: IPRATROPIUM BROMIDE 0.5 MG/2.5 ML NEB SOLUTION NEB SCH ×6 (03:00→23:28)
[2022-04-09] MEDS: ALBUTEROL SULFATE 2.5 MG/0.5 ML NEB SOLUTION NEB SCH ×6 (03:00→23:28)
[2022-04-09] MEDS: LEVOTHYROXINE SODIUM 25 MCG TABLET PO SCH (06:10)
[2022-04-09 06:11] LABS: ANION GAP 6 mmol/L (8-16); CALCIUM, TOTAL 9.2 mg/dL (8.8-10.5); CARBON DIOXIDE 32 mmol/L (22-29); CHLORIDE 104 mmol/L (98-107); CREATININE 0.67 mg/dL (0.60-1.30); GLUCOSE,RANDOM 158 mg/dL (70-110); POTASSIUM 4.7 mmol/L (3.5-5.1); SODIUM SERUM 142 mmol/L (136-145); UREA NITROGEN, BLOOD 17 mg/dL (7-18)
[2022-04-09 06:18] LABS: GLOMERULAR FILTR. RATE CALC > 60 mL/min (>60)
[2022-04-09 06:21] LABS: BASOPHILS % (AUTO) 0.1 % (0.0-2.0); EOSINOPHILS % (AUTO) 0 % (1.0-6.0); HEMOGLOBIN 11.4 g/dL (12.0-16.0); LYMPHOCYTES # (AUTO) 0.4 K/uL (1.0-4.8); LYMPHOCYTES % (AUTO) 7.3 % (22.0-44.0); MEAN CORPUSCULAR HEMOGLOBIN 29.8 pg (26.0-34.0); MEAN CORPUSCULAR HGB CONC 32.6 G/dL (31.0-37.0); MEAN CORPUSCULAR VOLUME 92 fL (80-100); MONOCYTES % (AUTO) 0.8 % (2.0-9.0); NEUTROPHILS # (AUTO) 5.2 K/uL (1.8-7.7); PLATELET COUNT (AUTO) 277 K/uL (150-450); RED BLOOD CELL COUNT(AUTO) 3.82 MIL/uL (4.00-5.20); RED CELL DISTRIBUTION WIDTH 15.4 % (11.5-14.5)
[2022-04-09 06:45] VITALS: BP 115/59
[2022-04-09 06:46] LABS: THYROID STIMULATING HORMONE 0.89 uIU/mL (0.36-3.74)
[2022-04-09 07:00] LABS: NEUTROPHILS % (AUTO) 91.8 % (40.0-70.0)
[2022-04-09 07:42] VITALS: BP 120/59
[2022-04-09] MEDS: DOCUSATE SODIUM 100 MG CAPSULE PO SCH ×2 (08:27→21:04)
[2022-04-09] MEDS: AMIODARONE HCL 200 MG TABLET PO SCH (08:27)
[2022-04-09] MEDS: APIXABAN 5 MG TABLET PO SCH ×2 (08:27→21:04)
[2022-04-09] MEDS: DILTIAZEM HCL CD 120 MG ER CAPSULE PO SCH (08:28)
[2022-04-09] MEDS: DILTIAZEM HCL CD 180 MG ER CAPSULE PO SCH (08:28)
[2022-04-09] MEDS: PANTOPRAZOLE SODIUM 40 MG DR TABLET PO SCH (08:28)
[2022-04-09] MEDS: ASCORBIC ACID 500 MG TABLET PO SCH (08:28)
[2022-04-09] MEDS: SERTRALINE HCL 100 MG TABLET PO SCH (08:28)
[2022-04-09] MEDS: AZITHROMYCIN 250 MG TABLET PO SCH (08:29)
[2022-04-09] MEDS: TIOTROPIUM BROMIDE 18 MCG/INH HANDIHALER [5] IH SCH (08:29)
[2022-04-09 12:08] VITALS: BP 129/64
[2022-04-09] MEDS ORDERED: HYPROMELLOSE 0.5% 15 ML OPHTHALMIC SOLUTION OU PRN (13:30)
[2022-04-09 15:37] VITALS: BP 136/74
[2022-04-09] MEDS: BISACODYL 10 MG RECTAL RECTAL SUPPOSITORY PR PRN (17:41)
[2022-04-09 20:19] VITALS: BP 100/5
[2022-04-09] MEDS: ROPINIRole HCL 0.25 MG TABLET PO SCH (21:04)
[2022-04-09] MEDS: CefTRIAXone 1 GM/DEXTROSE 50 ML IV SCH (21:05)
[2022-04-09] MEDS: ACETAMINOPHEN 325 MG TABLET PO PRN (23:54)
[2022-04-10] VITALS (7 sets, daily range): BP systolic 100–115; BP diastolic 40–72
[2022-04-10] MEDS: ALBUTEROL SULFATE 2.5 MG/0.5 ML NEB SOLUTION NEB SCH ×6 (02:52→23:16)
[2022-04-10] MEDS: IPRATROPIUM BROMIDE 0.5 MG/2.5 ML NEB SOLUTION NEB SCH ×6 (02:52→23:16)
[2022-04-10] MEDS: MethylPREDNISolone SOD SUCC 125 MG/2 ML VIAL IVP SCH ×2 (06:28→12:05)
[2022-04-10] MEDS: LEVOTHYROXINE SODIUM 25 MCG TABLET PO SCH (06:28)
[2022-04-10] MEDS: TIOTROPIUM BROMIDE 18 MCG/INH HANDIHALER [5] IH SCH (08:22)
[2022-04-10] MEDS: DILTIAZEM HCL CD 180 MG ER CAPSULE PO SCH (08:22)
[2022-04-10] MEDS: DOCUSATE SODIUM 100 MG CAPSULE PO SCH ×2 (08:22→20:48)
[2022-04-10] MEDS: DILTIAZEM HCL CD 120 MG ER CAPSULE PO SCH (08:22)
[2022-04-10] MEDS: AZITHROMYCIN 250 MG TABLET PO SCH (08:23)
[2022-04-10] MEDS: PANTOPRAZOLE SODIUM 40 MG DR TABLET PO SCH (08:23)
[2022-04-10] MEDS: AMIODARONE HCL 200 MG TABLET PO SCH (08:23)
[2022-04-10] MEDS: ASCORBIC ACID 500 MG TABLET PO SCH (08:23)
[2022-04-10] MEDS: SERTRALINE HCL 100 MG TABLET PO SCH (08:23)
[2022-04-10] MEDS: APIXABAN 5 MG TABLET PO SCH ×2 (08:23→20:47)
[2022-04-10] MEDS: ACETAMINOPHEN 325 MG TABLET PO PRN (13:59)
[2022-04-10] MEDS ORDERED: DEXTROSE 50%-WATER 25 GM/50 ML SYRINGE IVP PRN (14:00)
[2022-04-10 14:39] LABS: ABG BASE EXCESS 6.8 mmol/L (-2.0-3.0); ABG CARBOXYHEMOGLOBIN 0.9 % (0.0-1.5); ABG HCO3 29.6 mmol/L (22.0-26.0); ABG METHEMOGLOBIN 0.3 % (0.0-1.5); ABG OXYGEN CONTENT 16.2 mL/dL (15.0-23.0); ABG OXYGEN SATURATION 96.7 % (95.0-98.0); ABG OXYHEMOGLOBIN 95.5 % (94.0-100.0); ABG PCO2 51 mmHg (35-45); PO2, ARTERIAL BG 85.5 mmHg (75.0-83.0); SOURCE, BLOOD GAS ARTERIAL; TEMPERATURE, FAHRENHEIT, BG 98.5 FAHREN (96.0-98.6)
[2022-04-10 14:40] LABS: O2 DEVICE,BLOOD GAS CANNULA (ROOM AIR); SITE, BLOOD GAS RT BRACHIAL
[2022-04-10] MEDS: MethylPREDNISolone SOD SUCC 40 MG/ML VIAL IVP SCH (17:18)
[2022-04-10] MEDS: INSULIN LISPRO 100 UNITS/ML SQ PRN ×2 (17:21→22:48)
[2022-04-10 18:01] LABS: GLUCOMETER DEV NAME(LOC) 5N.1C; GLUCOSE,POINT OF CARE 233 MG/DL (70-110)
[2022-04-10] MEDS: BENZONATATE 100 MG CAPSULE PO SCH (20:46)
[2022-04-10] MEDS: ROPINIRole HCL 0.25 MG TABLET PO SCH (20:47)
[2022-04-10] MEDS: CefTRIAXone 1 GM/DEXTROSE 50 ML IV SCH (22:33)
[2022-04-11 00:11] VITALS: BP 91/48
[2022-04-11 01:06] LABS: GLUCOMETER DEV NAME(LOC) 5S.1B; GLUCOSE,POINT OF CARE 199 MG/DL (70-110)
[2022-04-11] MEDS: ALBUTEROL SULFATE 2.5 MG/0.5 ML NEB SOLUTION NEB SCH ×3 (03:00→11:24)
[2022-04-11] MEDS: IPRATROPIUM BROMIDE 0.5 MG/2.5 ML NEB SOLUTION NEB SCH ×3 (03:00→11:24)
[2022-04-11 05:57] VITALS: BP 97/64
[2022-04-11] MEDS: LEVOTHYROXINE SODIUM 25 MCG TABLET PO SCH (05:58)
[2022-04-11] MEDS: MethylPREDNISolone SOD SUCC 40 MG/ML VIAL IVP SCH ×2 (05:58)
[2022-04-11 07:06] LABS: GLUCOMETER DEV NAME(LOC) 5N.1C; GLUCOSE,POINT OF CARE 161 MG/DL (70-110)
[2022-04-11 07:44] VITALS: BP 115/65
[2022-04-11] MEDS: DILTIAZEM HCL CD 120 MG ER CAPSULE PO SCH (09:40)
[2022-04-11] MEDS: AMIODARONE HCL 200 MG TABLET PO SCH (09:40)
[2022-04-11] MEDS: PANTOPRAZOLE SODIUM 40 MG DR TABLET PO SCH (09:40)
[2022-04-11] MEDS: DOCUSATE SODIUM 100 MG CAPSULE PO SCH (09:41)
[2022-04-11] MEDS: SERTRALINE HCL 100 MG TABLET PO SCH (09:41)
[2022-04-11] MEDS: DILTIAZEM HCL CD 180 MG ER CAPSULE PO SCH (09:41)
[2022-04-11] MEDS: BENZONATATE 100 MG CAPSULE PO SCH (09:41)
[2022-04-11] MEDS: APIXABAN 5 MG TABLET PO SCH (09:42)
[2022-04-11] MEDS: AZITHROMYCIN 250 MG TABLET PO SCH (09:42)
[2022-04-11] MEDS: ASCORBIC ACID 500 MG TABLET PO SCH (09:42)
[2022-04-11] MEDS: TIOTROPIUM BROMIDE 18 MCG/INH HANDIHALER [5] IH SCH (09:45)
[2022-04-11] MEDS ORDERED: MELA5TAB40 PO (10:48)
[2022-04-11] MEDS ORDERED: ROPI0.2535 PO (10:48)
[2022-04-11] MEDS ORDERED: GABA-1181 PO (10:48)
[2022-04-11] MEDS ORDERED: HYPR15DR23 (10:48)
[2022-04-11] MEDS ORDERED: ALBU8HFA IH (10:48)
[2022-04-11] MEDS ORDERED: LORA-999 PO (10:48)
[2022-04-11] MEDS ORDERED: CHOL25TA4 PO (10:48)
[2022-04-11] MEDS ORDERED: LIDO1ADH83 TP (10:48)
[2022-04-11] MEDS ORDERED: AZIT-84 PO (11:08)
[2022-04-11] MEDS ORDERED: BENZ-70 PO (11:08)
[2022-04-11] MEDS ORDERED: CEFX2I IV (11:09)
[2022-04-11] MEDS ORDERED: DILT-39 PO (11:10)
[2022-04-11] MEDS ORDERED: HYPR15DR23 OU (11:14)
[2022-04-11] MEDS ORDERED: INSU100V SQ (11:23)
[2022-04-11] MEDS ORDERED: PRED-729 PO ×3 (11:26→11:28)
[2022-04-11] MEDS ORDERED: PredniSONE 20 MG TABLET PO ONE (11:45)
[2022-04-11] MEDS: LORazepam 0.5 MG TABLET PO PRN (12:08)
[2022-04-11 12:27] LABS: GLUCOMETER DEV NAME(LOC) 5S.1B; GLUCOSE,POINT OF CARE 188 MG/DL (70-110)
== END 2022-04-11 12:10 | DRG 291 ==
LOC: EMS 14:04 → 5S 22:17
PROVIDERS: ADMIT Internal Medicine; ATTEND Internal Medicine
DX: I11.0 Hypertensive heart disease with heart failure (principal); I50.33 Acute on chronic diastolic (congestive) heart failure; J98.11 Atelectasis; K59.00 Constipation, unspecified; K52.89 Other specified noninfective gastroenteritis and colitis; E03.9 Hypothyroidism, unspecified; E11.9 Type 2 diabetes mellitus without complications; E66.9 Obesity, unspecified; F32.A Depression, unspecified; F41.9 Anxiety disorder, unspecified; G89.4 Chronic pain syndrome; I27.21 Secondary pulmonary arterial hypertension; I48.0 Paroxysmal atrial fibrillation; J43.9 Emphysema, unspecified; K44.9 Diaphragmatic hernia without obstruction or gangrene; R62.7 Adult failure to thrive; K21.9 Gastro-esophageal reflux disease without esophagitis; R91.1 Solitary pulmonary nodule; Z20.822 Contact with and (suspected) exposure to COVID-19; Z99.81 Dependence on supplemental oxygen; Z87.891 Personal history of nicotine dependence; Z83.3 Family history of diabetes mellitus; Z82.5 Family history of asthma and other chronic lower respiratory diseases; Z82.49 Family history of ischemic heart disease and other diseases of the circulatory system; Z79.899 Other long term (current) drug therapy; Z88.8 Allergy status to other drugs, medicaments and biological substances; Z74.01 Bed confinement status; Z68.32 Body mass index [BMI] 32.0-32.9, adult
CPT/HCPCS: 36600; 71045; 71275; 74176; 80048; 80053; 82805; 82962; 83605; 83690; 83880; 84443; 84484; 85025; 87040; 87081; 93005; 93306; 94640; 99285; J0456; J0696; J1940; J2920; J2930; J7050; J7120; Q9967; 36415-L1; 36415-TC; J7613